=== PATIENT | male | born 1995 | race Caucasian/White ===

== ENCOUNTER 2017-02-16 12:03 | Emergency (ER) | payer OTHER ==
[2017-02-16 12:10] VITALS: BP 141/65
--- NOTE | 2017-02-16 12:51 | ED Physician Documentation ---
PD HPI HEADACHE - Stated complaint Stated Complaint: HEAD INJ - Chief complaint Chief Complaint: Heent - History obtained from History obtained from: Patient - History of Present Illness Timing - onset: Other (Snowboarding sal[place] Last 2 days ago, fell forward and hit his left catholic and has had persistent pounding headaches with nausea but no vomiting ever since. No other injuries.) Review of Systems Constitutional: denies: Fever, Chills Cardiac: denies: Chest pain / pressure, Palpitations Respiratory: denies: Dyspnea, Cough GI: denies: Abdominal Pain PD PAST MEDICAL HISTORY - Past Medical History Past Medical History: No - Past Surgical History Past Surgical History: No - Present Medications Home Medications: Ambulatory Orders Medication Instructions Recorded Confirmed No Known Home Medications [No 02/16/17 02/16/17 Known Home Medications] - Allergies Allergies/Adverse Reactions: Allergies Allergy/AdvReac Type Severity Reaction Status Date / Time Penicillins Allergy Hives Verified 02/16/17 12:10 - Social History Does the pt smoke?: No Smoking Status: Never smoker Does the pt drink ETOH?: No Does the pt have substance abuse?: No - Immunizations Immunizations are current?: Yes - POLST Patient has POLST: No PD ED PE NORMAL - Vitals Vital signs reviewed: Yes - General General: Alert and oriented X 3, No acute distress - HEENT HEENT: PERRL, EOMI, Ears normal, Pharynx benign - Neck Neck: Supple, no meningeal sign, No bony TTP - Neuro Neuro: Alert and oriented X 3, No motor deficit, No sensory deficit, Normal speech Eye Opening: Spontaneous Motor: Obeys Commands Verbal: Oriented GCS Score: 15 - Psych Psych: Normal mood, Normal affect Results - Vitals Vitals: Vital Signs - 24 hr 02/16/17 12:07 Temperature 36.5 C Heart Rate 70 Respiratory 16 Rate Blood Pressure 141/65 H O2 Saturation 100 Oxygen O2 Source Room air - Rads (name of study) CT Head Radiology: EMP read contemporaneously (normal) Departure - Departure Disposition: 01 Home, Self Care Clinical Impression: Concussion Qualifiers: Encounter type: initial encounter Loss of consciousness presence/duration: without LOC Qualified Code(s): S06.0X0A - Concussion without loss of consciousness, initial encounter Condition: Good Record reviewed to determine appropriate education?: Yes Instructions: ED Concussion Comments: Take it easy without too much exertion or physical activity until you are feeling better. Feel follow-up with your doctor in the next few days. Wear a helmet when snowboarding next time. Your blood pressure was elevated today on check into the emergency department. This does not mean that you have hypertension, it is a common phenomenon to come to the emergency department and have elevated blood pressure. I recommend that you see your primary care physician within the week to have it rechecked when you are feeling better.
--- NOTE | 2017-02-16 13:53 | CT Preliminary Report ---
Exam: CT HEAD W/O IMPRESSION: Normal head CT. [facility] SITE ID: [id number]
--- NOTE | 2017-02-16 13:57 | CT Report ---
EXAM: CT HEAD EXAM DATE: 02/16/2017 01:38 PM. CLINICAL HISTORY: Fall with snowboarding injury 2 days ago. Left-sided headache, dizziness and nausea . COMPARISON: None. TECHNIQUE: Multiaxial CT images were obtained from the foramen magnum to the vertex. Reformats: Coron al. IV contrast: None. In accordance with CT protocol optimization, one or more of the following dose reduction techniques w ere utilized for this exam: automated exposure control, adjustment of mA and/or KV based on patient s ize, or use of iterative reconstructive technique. FINDINGS: Parenchyma: No intraparenchymal hemorrhage. No evidence of mass, midline shift, or CT findings of inf arction. Sauceda-white differentiation is distinct. Extraaxial Spaces: Normal for age. No subdural or epidural collections identified. Ventricles: Normal in size and position. Sinuses and Orbits: Imaged paranasal sinuses, orbits, and mastoids show no significant abnormality. Bones: No evidence of fracture or calvarial defect. Other: None. IMPRESSION: Normal head CT. [facility] Referring Provider Line: [phone] SITE ID: [id number]
== END 2017-02-16 14:03 | disposition home or self-care (01) ==
LOC: ED 12:03
DX: S06.0X0A Concussion without loss of consciousness, initial encounter (principal); V00.311A Fall from snowboard, initial encounter; Y93.23 Activity, snow (alpine) (downhill) skiing, snowboarding, sledding, tobogganing and snow tubing; Y92.828 Other wilderness area as the place of occurrence of the external cause; R03.0 Elevated blood-pressure reading, without diagnosis of hypertension
CPT/HCPCS: 70450; 99283

== ENCOUNTER 2018-07-27 23:29 | Emergency (ER) | payer OTHER ==
[2018-07-27 23:35] VITALS: BP 128/73
--- NOTE | 2018-07-27 23:38 | ED Physician Documentation ---
History of Present Illness - Stated complaint Stated Complaint: RASH - Chief complaint Chief Complaint: Wound - History obtained from History obtained from: Patient - Additonal information Additional information: Patient is a previously healthy 23-year-old male presenting with urticarial rash to his trunk that began just prior to arrival. Patient's only known allergy is penicillin and he denies any new medications, foods, or other exposures except for new laundry detergent. Patient reports that rash is red and itchy but not painful. No blistering. Patient has not yet taken any medications at home. Otherwise, patient has had been at his normal state of health without complaint. No other improving or worsening factors noted. Review of Systems Skin: reports: Rash PD PAST MEDICAL HISTORY - Past Medical History Past Medical History: No - Past Surgical History Past Surgical History: No - Present Medications Home Medications: Ambulatory Orders Medication Instructions Recorded Confirmed Methylprednisolone [Medrol] 4 mg PO DAILY #1 tab.ds.pk 07/27/18 - Allergies Allergies/Adverse Reactions: Allergies Allergy/AdvReac Type Severity Reaction Status Date / Time Penicillins Allergy Hives Verified 07/27/18 23:35 - Social History Does the pt smoke?: No Smoking Status: Never smoker Does the pt drink ETOH?: No Does the pt have substance abuse?: No - Immunizations Immunizations are current?: Yes - POLST Patient has POLST: No PD ED PE NORMAL - Vitals Vital signs reviewed: Yes - General General: Alert and oriented X 3, No acute distress, Well developed/nourished - HEENT HEENT: Atraumatic, Moist mucous membranes, Pharynx benign, Other (No mucosal involvement. No intraoral swelling.) - Cardiac Cardiac: RRR, No murmur - Respiratory Respiratory: No respiratory distress, Clear bilaterally - Derm Derm: Warm and dry. No: Normal color (Scattered erythematous but blanching urticarial rash over trunk in pattern of clothing), No rash - Extremities Extremities: No deformity, No tenderness to palpate - Neuro Neuro: Alert and oriented X 3, No motor deficit, No sensory deficit - Psych Psych: Normal mood, Normal affect Results - Vitals Vitals: Vital Signs - 24 hr 07/27/18 23:32 Temperature 36.6 C Heart Rate 92 Respiratory 16 Rate Blood Pressure 128/73 O2 Saturation 98 Oxygen O2 Source Room air PD MEDICAL DECISION MAKING - ED course Complexity details: considered differential, d/w patient ED course: Patient is presenting with localized allergic reaction, likely due to clothing detergent particularly given the pattern of rash. No mucosal involvement and no concerns for anaphylaxis at this time. Patient does not require IV medications or epinephrine. Do not feel patient requires EpiPen's for home at this juncture. Instead, patient prescribed steroids and Pepcid while in the ED. Benadryl was held as patient is driving home, but discussed other [id number] medications including Benadryl that patient can use at home. Feel that patient can otherwise follow-up with his primary care physician as an outpatient. Patient agreed and is amenable to discharge plan. Departure - Departure Disposition: ED Transfer to [facility] Clinical Impression: Allergic reaction Qualifiers: Encounter type: initial encounter Qualified Code(s): T78.40XA - Allergy, unspecified, initial encounter Condition: Good Instructions: ED Allergic Reaction Local Other Follow-Up: your,doctor [Other] - Within 3 Days Prescriptions: Methylprednisolone [Medrol] 4 mg PO DAILY #1 tab.ds.pk Comments: Please take steroids as prescribed starting tomorrow as you received your first dose in the ED tonight. Also recommend other [id number] antihistamine such as Benadryl. May use over the counter topical anti-itch or steroid creams if needed. Please follow-up with your primary care physician in next 2 to 3 days and return to ED sooner if experience worsening symptoms or other concerns. Also recommend returning to original laundry detergent as this may be the cause of your allergic reaction.
[2018-07-27] MEDS ORDERED: FAMOTIDINE 20 MG TABLET PO STA (23:42)
[2018-07-27] MEDS ORDERED: predniSONE 20 MG TABLET PO STA (23:42)
== END 2018-07-27 23:51 | disposition home or self-care (01) ==
LOC: ED 23:29
DX: T78.40XA Allergy, unspecified, initial encounter (principal)
CPT/HCPCS: 99283; A9270; J7512